=== PATIENT | female | born 1990 | race Caucasian/White ===

== ENCOUNTER → 2020-12-24 03:31 | Outpatient (CLI) | payer MEDICAID, SELFPAY ==
[2020-12-25 01:23] LABS: SARS-CoV-2 RNA PCR Negative
== END ==
PROVIDERS: Visit Provider Obstetrics & Gynecology
DX: Z01.812 Encounter for preprocedural laboratory examination (principal); Z20.822 Contact with and (suspected) exposure to COVID-19
CPT/HCPCS: C9803; U0003; U0005

== ENCOUNTER 2020-12-27 02:11 | Day surgery (SDC) | payer BC, MEDICAID, SELFPAY ==
[2020-12-24 15:39] VITALS: BMI 27.4
--- NOTE | 2020-12-26 13:54 | WPDANESEPPF ---
Anes - Initial Pre Proc Eval Procedure: Operation Date: 12/27/20 07:30 Proposed Procedures p Bilateral Laparoscopic Salpingectomy - Louis Bustos MD Date/Time: 12/26/20 13:54 Surgeon: Louis Bustos MD Pre Op Diagnosis: Contraception Care Management Patient Data Age: 30 Gender: F Height: 1.63 m Weight: 72.57 kg Allergies Allergy/AdvReac Type Severity Reaction Status Date / Time No Known Allergies Allergy Verified 12/27/20 06:24 Home Medications Medication Instructions Recorded Confirmed Type venlafaxine 150 mg PO HS 12/24/20 12/27/20 History Patient hx anesthesia problems: none Family hx anesthesia problems: none PMFSH Past Medical History Medical History Anxiety Depression Hypercholesterolemia Overweight (BMI 25.0-29.9) Smoker Social History Social History Smoking status: Current every day smoker Tobacco type: e-cigarettes/vaping Second hand tobacco smoke exposure: No Additional smoking assessment comments: CIGARETTES [id number] TO VAPING 2017 DAILY Alcohol intake: current Drinks per week: 20 Alcohol use details: BEER Substance use: former Substance use type: marijuana Last use: 2019 Living arrangements: with family Spiritual care concerns: No Anes - Eval Final PreProcedure Day of Procedure 12/26/20 13:54 Patient weight: overweight Heart: regular rate and rhythm Lungs: clear to auscultation and normal air movement Airway: Mallampati scale class II Neurological: alert and oriented Last oral intake: >/= 8 hours ASA classification: II Emergent: no Anesthetic plan: proceed Anesthesia type and monitoring: general ETT Informed Consent: The patient's anesthetic plan and its attendant risks and benefits were discussed with the patient/family/POA. Questions were solicited and answers provided to the satisfaction of the patient/family/POA.
[2020-12-27] VITALS (7 sets, daily range): BP systolic 117–136; BP diastolic 59–83; PULSE 66–83; RESP 16–20; TEMP 36.1–36.9; O2SAT 100
[2020-12-27] MEDS: ACETAMINOPHEN 500 MG TABLET 1000 MG PO (06:28)
[2020-12-27] MEDS: LACTATED RINGERS 1,000 ML 30 ML IV CONT ×2 (06:38→08:20)
[2020-12-27] MEDS: KETOROLAC 15 MG/ML VIAL (*BKC) IV PUSH (06:39)
--- NOTE | 2020-12-27 07:11 | WPDHPUPDATE1 ---
History and Physical Update Update Date/Time: 12/27/20 07:11 History and Physical has been reviewed, including an updated exam of the patient. There are NO changes in the patient's condition. Risks, benefits, and alternatives have been discussed and questions answered. Patient agrees to proceed with procedure.
--- NOTE | 2020-12-27 08:16 | W.PM.PROC2 ---
Procedure Note - Detailed Date of Procedure 12/27/20 Pre-op Diagnosis Contraception Care Management Post-op Diagnosis same Procedure Performed Laparoscopic bilateral salpingectomy, right ovarian cystectomy Surgeon Louis Bustos MD Anesthesia general Indications Unwanted fertility,right ovarian cyst Findings bleeding right ovarian cyst Description of Procedure The patient was taken the operating room. She was prepped and draped in the dorsal lithotomy position after induction of general anesthesia. A 5 mm skin incision was made in the left upper quadrant of the abdominal skin. A 5 mm trocar was inserted the intra-abdominal cavity under direct visualization of the scope. Pneumoperitoneum was achieved. A 5 mm trocar was inserted in the left lower quadrant identical fashion. A 5 mm infraumbilical trocar was inserted in identical fashion as well. The bilateral fallopian tubes were removed. This was done by using a LigaSure cautery. The mesosalpinx adjacent to the tube was cauterized transected with LigaSure. This was initiated in the area the ovary and in a stepwise fashion moved medially to the area of the cornu of the uterus. Once there the fallopian tube was cauterized and transected. This was done in identical fashion on each side. The fallopian tubes were taken out through the left lower quadrant trocar site. Aright ovarian cystectomy was performed. The cyst was removed with sharp and blunt dissection, using ligasure cautery to cauterize. The cyst began to bleed after being manipulated for the tube resection. The pneumoperitoneum was reduced. The trocars removed. The skin was closed with subcuticular 4 Monocryl and covered with Dermabond. She was taken to cover stable condition. Sponge lap and needle counts were correct x2. Estimated Blood Loss 5 Drains No Packing No Pathology yes Complications No immediate complications Condition stable Disposition PACU
--- NOTE | 2020-12-27 08:41 | SUR.PHASEI ---
Simple mask removed at 0840.
== END 2020-12-27 09:37 | disposition home or self-care (01) ==
PROVIDERS: Visit Provider Obstetrics & Gynecology
PROC: (CPT 49320; principal; 2020-12-27 07:30)
DX: Z30.2 Encounter for sterilization (principal); N83.201 Unspecified ovarian cyst, right side; F41.8 Other specified anxiety disorders; E78.00 Pure hypercholesterolemia, unspecified; F17.290 Nicotine dependence, other tobacco product, uncomplicated
CPT/HCPCS: 58662; 58661; 88302; 88305; A9270; J1100; J1885; J2250; J2405; J2704; J2710; J3010; J7030; J7120